=== PATIENT | male | born 1995 | race Two or more races ===

== ENCOUNTER 2023-12-13 19:54 | Inpatient (IN) | payer OTHER ==
[~2023-12-13] VITALS: Ht 185.4 cm; Wt 75.0 kg
[2023-12-13] MEDS ORDERED: SERT50TA29 PO (21:40)
[2023-12-13] MEDS ORDERED: VIVI380I IM (21:40)
[2023-12-13] MEDS ORDERED: HOME MED LIST COMPLETE! XX SCH (21:45)
[2023-12-13 22:04] LABS: HEMATOCRIT 47.2 % (42.0-52.0); HEMOGLOBIN 16.6 g/dl (13.5-17.5); MEAN CORPUSCULAR HEMOGLOBIN 30.7 pg (27.0-33.0); MEAN CORPUSCULAR HGB CONC 35.2 g/dl (32.0-36.5); MEAN CORPUSCULAR VOLUME 87.4 fl (80.0-96.0); PLATELET COUNT, AUTOMATED 260 10^3/uL (150-450); WHITE BLOOD COUNT 11.6 10^3/uL (4.0-10.0)
[2023-12-13 22:23] LABS: ETHYL ALCOHOL (ETHANOL) < 0.003 % (0.000-0.010)
[2023-12-13 22:25] LABS: ALBUMIN 4.5 G/DL (3.2-5.2); ALKALINE PHOSPHATASE 88 U/L (46-116); ALT/SGPT 22 U/L (7.0-40); AST/SGOT 20 U/L (<34); BILIRUBIN,DIRECT 0.6 MG/DL (<0.4); BILIRUBIN,TOTAL 1.9 MG/DL (0.3-1.2); BLOOD UREA NITROGEN 24 MG/DL (9-23); CALCIUM LEVEL 9.8 MG/DL (8.5-10.1); CARBON DIOXIDE LEVEL 24 MMOL/L (20-31); CHLORIDE LEVEL 105 MMOL/L (98-107); CREATININE FOR GFR 1.15 MG/DL (0.70-1.30); GLOMERULAR FILTRATION RATE > 60.0 (>60); GLUCOSE, FASTING 101 MG/DL (60-100); POTASSIUM SERUM 4.1 MMOL/L (3.5-5.1); SALICYLATE LEVEL < 3.0 MG/DL (<30); SODIUM LEVEL 138 MMOL/L (136-145); TOTAL PROTEIN 8.2 G/DL (5.7-8.2)
[2023-12-13 22:36] LABS: AMPHETAMINES LEVEL URINE NEGATIVE (NEGATIVE)
[2023-12-13 22:40] LABS: BARBITURATES URINE NEGATIVE (NEGATIVE); BENZODIAZEPINES URINE NEGATIVE (NEGATIVE); CANNABINOIDS URINE NEGATIVE (NEGATIVE); METHADONE URINE NEGATIVE (NEGATIVE); OPIATES URINE NEGATIVE (NEGATIVE); PHENCYCLIDINE URINE NEGATIVE (NEGATIVE)
[2023-12-13 22:47] LABS: COCAINE METABOLITE URINE POSITIVE (NEGATIVE)
[2023-12-14] MEDS: SERTRALINE HCL 50 MG TAB PO SCH (09:52)
[2023-12-14] MEDS ORDERED: diphenhydrAMINE 25MG CAP PO PRN (15:40)
[2023-12-14] MEDS ORDERED: MOM 30ML SUSPENSION UDC PO PRN (15:40)
[2023-12-14] MEDS ORDERED: MAALOX 30 ML SUSP *UDC PO PRN (15:40)
[2023-12-14] MEDS ORDERED: IBUPROFEN 400MG TAB PO PRN (15:40)
[2023-12-14 16:22] VITALS: BP 115/58; TEMP 97.5; O2SAT 97
[2023-12-15 06:23] VITALS: BP 112/72; TEMP 97.5; O2SAT 100
[2023-12-15] MEDS: SERTRALINE HCL 25 MG TABLET PO SCH (11:02)
[2023-12-15] MEDS: CEPACOL LOZENGE PO PRN (13:03)
[2023-12-15 16:01] VITALS: BP 115/56; TEMP 98; O2SAT 98
[2023-12-15] MEDS: traZODone 50 MG TAB PO PRN (20:27)
[2023-12-16 06:31] VITALS: BP 95/50; TEMP 97.2; O2SAT 100
[2023-12-16 16:25] VITALS: BP 122/61; TEMP 98; O2SAT 98
[2023-12-16] MEDS: ACETAMINOPHEN TAB 650MG DOSE (2X325MG) PO PRN (17:43)
[2023-12-17 06:23] VITALS: BP 126/67; TEMP 97.6; O2SAT 100
[2023-12-17] MEDS ORDERED: SERT50TA29 PO (07:36)
== END 2023-12-17 10:15 | disposition home or self-care (01) | DRG 881 ==
LOC: M ED 19:54 → M ED INP 12-14 15:36 → M PSY 12-14 16:41
PROVIDERS: ADMIT Psychiatry & Neurology Psychiatry; ATTEND Psychiatry & Neurology Psychiatry
DX: F32.A Depression, unspecified (principal); R45.851 Suicidal ideations; Z91.82 Personal history of military deployment; Z79.899 Other long term (current) drug therapy; F14.10 Cocaine abuse, uncomplicated